=== PATIENT | female | born 1990 | race Two or more races ===

== ENCOUNTER 2022-06-24 15:09 | Emergency (ER) | payer OTHER ==
[~2022-06-24] VITALS: Ht 165.1 cm; Wt 68.0 kg
[2022-06-24] MEDS ORDERED: ONDANSETRON ODT8 MG PO (19:50)
== END 2022-06-24 20:16 | disposition home or self-care (01) ==
LOC: ER 15:09
DX: O98.911 Unspecified maternal infectious and parasitic disease complicating pregnancy, first trimester (principal); K52.9 Noninfective gastroenteritis and colitis, unspecified; Z3A.12 12 weeks gestation of pregnancy; Z20.822 Contact with and (suspected) exposure to COVID-19

== ENCOUNTER 2022-07-21 09:47 | Emergency (ER) | payer OTHER ==
[~2022-07-21] VITALS: Ht 165.1 cm; Wt 65.8 kg
[~2022-07-21 09:47] MED LIST: ONDANSETRON ODT8 MG PO
[2022-07-21] MEDS ORDERED: DICLEGIS DR 101 EACH (10:18)
== END 2022-07-21 12:40 | disposition home or self-care (01) ==
LOC: ER 09:47
DX: O21.0 Mild hyperemesis gravidarum (principal); Z3A.14 14 weeks gestation of pregnancy; Z87.19 Personal history of other diseases of the digestive system

== ENCOUNTER 2023-01-31 11:19 | Emergency (ER) | payer OTHER ==
[~2023-01-31] VITALS: Ht 165.1 cm; Wt 65.8 kg
[~2023-01-31 11:19] MED LIST changes: +DICLEGIS DR 101 EACH
== END 2023-01-31 15:53 | disposition home or self-care (01) ==
LOC: ER 11:19
DX: O20.8 Other hemorrhage in early pregnancy (principal); Z3A.01 Less than 8 weeks gestation of pregnancy